=== PATIENT | female | born 1980 | race Caucasian/White ===

== ENCOUNTER 2017-05-03 11:59 | Inpatient (IN) | payer BC ==
--- NOTE | 2017-04-30 10:07 | HP ---
Admitting History and Physical - Primary Care Physician PCP: Calvin Du - Admission Chief Complaint: left breast cancer History of Present Illness: Patient is a 36 yo female noted to have a left breast mass on self exam for more than a year and a half. Patient had a mammo and US which revealed a spiculated lesion in the left UOQ and a suspicious lymph node. Patient underwent an US guided core bx on Sep 2016 which was positive for infiltrating ductal ca and DCIS ER and TX positive. Bx of the left axillary LN was negative. MRI was c/w localized dz at 2.1 cm. Ambry genetic testing was negative. Patient underwent neoadjuvant chemo and is now presenting for bilateral mastectomy with left snbx possible andx with reconstruction. History Source: Patient Limitations to Obtaining History: No Limitations - Past Medical History Gastrointestinal: Yes: Diverticulitis, Irritable Bowel Disease ...LMP: 10/25/13 - Past Surgical History Additional Past Surgical History: Right cervical LN bx as a teenager. egg harvesting - Smoking History Smoking history: Unknown if ever smoked Have you smoked in the past 12 months: Yes Aproximately how many cigarettes per day: 10 - Alcohol/Substance Use Hx Alcohol Use: Yes (WINE/RUM/VODKA) Home Medications - Allergies Allergies/Adverse Reactions: Allergies Allergy/AdvReac Type Severity Reaction Status Date / Time No Known Allergies Allergy Verified 12/19/13 14:43 - Home Medications Home Medications (free text): Seroquel Family Disease History - Family Disease History Family Disease History: CA: Mother (colon and uterine), Other: Grandparent (HTN) Other Family History: maternal GM- breast cancer. maternal GF-prostate cancer. maternal uncle-colon cancer Review of Systems - Review of Systems Constitutional: reports: No Symptoms Cardiovascular: reports: No Symptoms Respiratory: reports: No Symptoms Physical Examination Constitutional: Yes: Well Nourished Breast(s): Yes: Other (ptotic C-cup breasts without skin changes or nipple discharge. Previously palpable mass is no longer palpable. No other suspicious masses or adenopathy noted bilaterally) Problem List - Problems (1) Breast cancer, left Code(s): C50.912 - MALIGNANT NEOPLASM OF UNSPECIFIED SITE OF LEFT FEMALE BREAST Qualifiers: Breast location: upper outer quadrant of breast Patient sex: female Assessment/Plan Plan Bilateral mastectomy with left snbx, lymph possible andx and reconstruction.
[2017-05-01 13:27] VITALS: BMI 29.2
[2017-05-03] MEDS ORDERED: DEXAMETHASONE SOD PHOSPHATE/PF 10 MG/ML SDV ONE (12:07)
[2017-05-03] MEDS ORDERED: BUPIVACAINE HCL/PF 2.5 MG/ML - 30 ML VIAL IJ ONE (12:07)
[2017-05-03] MEDS ORDERED: MIDAZOLAM HCL 2 MG/2 ML SINGLE DOSE VIAL ONE (12:08)
[2017-05-03] MEDS ORDERED: PROPOFOL 20 ML ONE ×4 (13:23→15:33)
[2017-05-03] MEDS ORDERED: ROCURONIUM BROMIDE 50 MG/5 ML VIAL ONE (13:24)
[2017-05-03] MEDS ORDERED: BUPIVACAINE 0.25% /EPI 1:200,000 10 ML VIAL INF ONE (13:30)
[2017-05-03] MEDS ORDERED: ceFAZolin SODIUM 1 GM VIAL ONE ×2 (13:39→14:12)
[2017-05-03] MEDS ORDERED: DEXAMETHASONE SOD PHOSPHATE 4 MG/1 ML VIAL ONE (13:39)
[2017-05-03] MEDS ORDERED: ONDANSETRON 4 MG/2 ML VIAL ONE ×2 (13:39→17:08)
[2017-05-03] MEDS ORDERED: BUPIVACAINE HCL/EPINEPHRINE/PF 30 ML VIAL IJ ONE (13:45)
[2017-05-03] MEDS ORDERED: GENTAMICIN SO4 80 MG/2 ML VIAL ONE (14:13)
[2017-05-03] MEDS ORDERED: ONDANSETRON 4 MG/2 ML VIAL IVPUSH PRN (14:36)
[2017-05-03] MEDS ORDERED: oxyCODONE HCL 5 MG TABLET PO PRN (14:38)
[2017-05-03] MEDS ORDERED: ACETAMINOPHEN 325 MG TABLET (FP) PO PRN (15:35)
[2017-05-03] MEDS ORDERED: ONDANSETRON 4 MG/2 ML VIAL IVPB PRN (15:35)
[2017-05-03] MEDS ORDERED: QUEtiapine FUMARATE 50 MG TABLET PO PRN (15:36)
--- NOTE | 2017-05-03 16:45 | OP ---
DATE OF OPERATION: 05/03/2017 PREOPERATIVE DIAGNOSIS: Left breast cancer, upper outer quadrant. POSTOPERATIVE DIAGNOSIS: Left breast cancer, upper outer quadrant. PROCEDURE: Bilateral total nipple-sparing mastectomies from inframammary approach with left axillary sentinel lymph node biopsy and bilateral direct implant reconstruction with Alloderm. ANESTHESIA: General endotracheal anesthesia. PRIMARY SURGEON: Gaviota Lane M.D. RAND CEMENTER: Fab Quintana Primary surgeon for bilateral direct implant reconstruction with Alloderm is Ben Bray M.D., with his or assistant, Fab Jacobsen COMPLICATIONS: None. Briefly, the patient is a 36-year-old nulliparous premenopausal white female of [place] descent. She has a family history with her maternal grandmother with breast cancer at age 68, and her mother had colon and uterine cancer, with a maternal uncle who had colon cancer as well. The patient felt a mass in the upper outer aspect of the left breast at the end of 2015, and mammography showed a spiculated density in the upper outer aspect of the left breast measuring 1.9 cm under ultrasound. She underwent an ultrasound core biopsy September 2016 showing an infiltrating ductal cancer which was ER/NE positive, and HER2 positive 3+ with a Ki-67 of 21%. Patient had a questionable density in the left axilla and underwent an ultrasound core biopsy that turned out to be negative. MRI showed localized cancer. She was seen by medical oncology, and decision was made to give her neoadjuvant chemotherapy. She did have egg harvesting prior to chemotherapy for fertility preservation. The patient underwent a followup MRI after chemotherapy in March 2017 showing a much smaller mass in the left breast, upper outer quadrant. She was advised at undergoing possible wide excision but chose to have bilateral mastectomies and wanted to have nipple sparing procedures. She did undergo genetic testing which was negative for cancer panel. She was seen by plastic surgery and decided to have direct implant reconstruction. The patient was brought in for the procedure on May 03, 2017. She first underwent a lymph node scintigraphy with technetium 99 injected in the periareolar region of the left nipple areolar complex. In the holding area at [place], site verification was made and informed consent was obtained. She was marked preoperatively by the plastic surgeon and did sign consent for the nipple sparing registry. She was brought into the operating room and laid on the OR table in the supine position. Venodynes were placed on the lower extremities. She received a gram of Ancef prior to incision. Both breasts were sterilely prepped and draped in the usual fashion. She underwent general endotracheal anesthesia. The left sentinel lymph node biopsy was first performed. No blue dye was injected since we were doing nipple sparing, and we did not want to have any ischemic skin changes. After incision was made in the left axilla, dissection was undertaken and hot node was easily found in the level 1 region of axilla with a 10-second gamma count of 3670. No other blue nodes were found, and background count was 140 after removal of this node. Hemostasis was achieved, and the axillary wound was closed using interrupted 3-0 deep dermal Vicryl suture and a running 4-0 subcuticular Biosyn suture. At this point, the left nipple sparing mastectomy was performed. A 9-cm inframammary incision was marked out in the inframammary fold and incision was made. The skin edges everted and the breast was retracted inferiorly, using Eliseo clamps. The skin flap was raised, using the PEAK radiofrequency device superiorly to level of the clavicle and medially to the level of the sternum, laterally to the level of the latissimus, and inferiorly below the level of the inframammary fold. The breast was taken out along with pectoralis major muscle from inferomedial to superolateral completely removed intact. It was oriented with a long lateral, short superior suture, and weighed to allow for appropriate cosmetic result. Hemostasis was achieved, and the skin edges were trimmed for good cosmetic result. A retroareolar biopsy was taken underneath the left nipple areolar complex and for frozen section, came back negative, so the left nipple was spared. The right sentinel lymph node came back negative by frozen section, so no further nodes were removed as well. The left breast wound was then copiously irrigated with warm sterile saline and hemostasis was achieved. At this point, the right mastectomy was performed, which was a prophylactic mastectomy. Gloves and instruments were changed. Again, an inframammary incision was made on the right side about 9 cm in length. The skin edge was everted, and the breast was retracted inferiorly using Wise clamps. The skin flap was raised using the PEAK radiofrequency device superiorly to the level of the clavicle and medially to the level of the sternum, laterally to the level of the latissimus, and inferiorly below the level of the inframammary fold. The breast was taken off the pectoralis major muscle from inferomedial to superolateral and completely removed intact. It was oriented with a long lateral, short superior suture and weighed to allow for appropriate cosmetic result. At this point, skin flaps were trimmed for good cosmetic result, and hemostasis was achieved. A right retroareolar biopsy was taken for frozen section, came back negative so the right nipple was spared. At this point, the left breast was x-rayed and showed removal of the 2 clips in question. Both breasts were then placed in formalin and sent to pathology as specimens. A separate anterior margin was taken in the upper outer aspect of the left breast on the skin flap, and a suture was placed on that to leann the biopsy cavity side and then sent separately to pathology as left breast anterior margin. At this point, Dr. Bray became the primary surgeon to perform bilateral direct implant reconstructions. Alloderm will be sutured into the inferolateral aspect of both pectoralis major muscles, and implants will be placed in the subpectoral space. This will all be dictated separately by plastic surgery. Kyaw drains will be placed around each implant and brought out through separate stab incisions on the lateral skin flaps. All wounds will be closed by plastic surgery using interrupted 3-0 deep dermal PDS suture and a running 4-0 subcuticular PDS suture. The patient will be extubated and will be recovered and then admitted postoperatively for pain and wound management. She did have a prepectoral block bilaterally for postoperative pain control. All sponge, needle counts were correct at the end of bilateral mastectomies and estimated blood loss was 100 mL. She was hemodynamically stable at this point of the case. GAVIOTA LANE M.D. [id number]
[2017-05-03] MEDS ORDERED: diazePAM 2 MG TABLET ONE (17:02)
[2017-05-03] MEDS ORDERED: ACETAMINOPHEN 325 MG TABLET (FP) ONE (17:02)
[2017-05-03] MEDS ORDERED: traMADol HCL 50 MG TABLET ONE (17:02)
[2017-05-03] MEDS ORDERED: ACETAMINOPHEN 325 MG TABLET (FP) PO ONE (17:03)
[2017-05-03] MEDS ORDERED: diazePAM 2 MG TABLET PO ONE (17:03)
[2017-05-03] MEDS ORDERED: traMADol HCL 50 MG TABLET PO ONE (17:03)
[2017-05-03] MEDS ORDERED: ONDANSETRON 4 MG/2 ML VIAL IVPUSH ONE (17:05)
[2017-05-03] MEDS ORDERED: PROMETHAZINE HCL 25 MG/1 ML VIAL ONE (17:19)
[2017-05-03] MEDS: ACETAMINOPHEN 325 MG TABLET (FP) PO SCH ×2 (19:12→20:45)
[2017-05-03] MEDS: LACTATED RINGERS SOLUTION 1,000 ML IV SCH (19:12)
[2017-05-03] MEDS: DEXTROSE 5%-0.45% SALINE 1,000 ML IV SCH (19:13)
[2017-05-03] MEDS: diazePAM 2 MG TABLET PO SCH ×2 (19:13→22:00)
[2017-05-03] MEDS: traMADol HCL 50 MG TABLET PO SCH ×2 (19:13→20:45)
[2017-05-03] MEDS: CEFAZOLIN 1 GM/D5W 50 ML IVPB SCH (20:45)
[2017-05-03] MEDS: ZOLPIDEM TARTRATE 5 MG TABLET PO PRN (22:00)
[2017-05-04] MEDS: traMADol HCL 50 MG TABLET PO SCH ×4 (03:25→20:26)
[2017-05-04] MEDS: ACETAMINOPHEN 325 MG TABLET (FP) PO SCH ×4 (03:26→20:25)
[2017-05-04] MEDS: CEFAZOLIN 1 GM/D5W 50 ML IVPB SCH ×4 (03:27→20:26)
[2017-05-04] MEDS: oxyCODONE HCL 5 MG TABLET PO PRN ×3 (04:47→19:30)
[2017-05-04] MEDS: diazePAM 2 MG TABLET PO SCH ×3 (06:06→21:45)
--- NOTE | 2017-05-04 07:39 | PN ---
Progress Note, Physician Chief Complaint: S/p bilateral breast mastectomies with direct implant placement with alloderm and Left lymph node bx History of Present Illness: Pt is doing well with no complaints. Pt feels mild pressure to chest wall but no sharp pain. She denies any fever, nausea, vomiting, or difficulty breathing. - Current Medication List Current Medications: Active Medications Acetaminophen (Tylenol -) 650 mg PO Q6H MARLEN Last Admin: 05/04/17 03:26 Dose: 650 mg Diazepam (Valium -) 2 mg PO Q8H MARLEN Last Admin: 05/04/17 06:06 Dose: 2 mg Fentanyl (Sublimaze Injection -) 50 mcg IVPUSH [id number] PRN PRN Reason: PAIN Stop: 05/06/17 14:37 Heparin Sodium (Porcine) (Heparin -) 5,000 unit SQ BID MARLEN Lactated Ringer's (Lactated Ringers Solution) 1,000 mls @ 125 mls/hr IV ASDIR MARLEN Last Admin: 05/03/17 19:12 Dose: Not Given Cefazolin Sodium (Ancef 1 Gm Premixed Ivpb -) 50 mls @ 100 mls/hr IVPB Q6H-IV MARLEN Stop: 05/10/17 20:59 Last Admin: 05/04/17 03:27 Dose: 100 mls/hr Dextrose/Sodium Chloride (D5-1/2ns -) 1,000 mls @ 100 mls/hr IV ASDIR MARLEN Last Admin: 05/03/17 19:13 Dose: Not Given Ondansetron HCl (Zofran Injection) 4 mg IVPB Q6H PRN PRN Reason: NAUSEA AND/OR VOMITING Oxycodone HCl (Roxicodone -) 5 mg PO Q4H PRN PRN Reason: PAIN Last Admin: 05/03/17 19:35 Dose: 5 mg Oxycodone HCl (Roxicodone -) 10 mg PO Q4H PRN PRN Reason: PAIN Last Admin: 05/04/17 04:47 Dose: 10 mg Quetiapine Fumarate (Seroquel -) 50 mg PO HS PRN PRN Reason: ANXIETY Tramadol HCl (Ultram -) 50 mg PO Q6H MARLEN Last Admin: 05/04/17 03:25 Dose: 50 mg Zolpidem Tartrate (Ambien -) 5 mg PO HS PRN PRN Reason: Insomnia Last Admin: 05/03/17 22:00 Dose: 5 mg - Objective Vital Signs: Vital Signs Temperature 98.0 F 05/04/17 06:00 Pulse Rate 6 L 05/04/17 06:00 Respiratory Rate 20 05/04/17 06:00 Blood Pressure 107/64 05/04/17 06:00 O2 Sat by Pulse Oximetry (%) 20 L 05/04/17 06:15 Constitutional: Yes: Well Nourished Eyes: Yes: WNL HENT: Yes: WNL Neck: Yes: WNL Cardiovascular: Yes: WNL Respiratory: Yes: WNL Gastrointestinal: Yes: WNL ...Rectal Exam: Yes: Deferred Genitourinary: Yes: WNL Breast(s): Yes: Other (Bilateral breasts with appropriate swelling and ecchymosis. Soft with no fluid collections or hematoma felt. MELONIE drains holding suction. Steri strips c/d/i. No s/s of infections. Bilateral nipples viable, left more dusky in color) Edema: No Integumentary: Yes: WNL Wound/Incision: Yes: Clean/Dry, Steri Strips ...Motor Strength: WNL Psychiatric: Yes: WNL Additional Findings/Remarks: Pt is POD #1 S/p bilateral breast mastectomies with direct implant placement with alloderm and Left lymph node bx Cont with pain management cont with post op bra and MELONIE drains cont with donald hugger Possible d/c later today or tomorrow Pt will call and follow up in one week.
[2017-05-04] MEDS ORDERED: QUEtiapine FUMARATE 25 MG TABLET (FP) PO PRN ×2 (08:04→22:00)
[2017-05-04 08:29] LABS: MCH 29.7 pg (25.7-33.7); MCHC 33.4 g/dl (32.0-36.0); MEAN CELL VOLUME 88.9 fl (80-96); MEAN PLT VOLUME 9.1 fl (7.5-11.1); PLATELET COUNT 294 K/MM3 (134-434); RDW 13.1 % (11.6-15.6); WHITE BLOOD COUNT 11.1 K/mm3 (4.0-10.8)
[2017-05-04] MEDS: BACITRACIN 0.9 GM PACKET TP SCH ×2 (08:32→21:44)
--- NOTE | 2017-05-04 09:20 | PN ---
Progress Note, Physician Chief Complaint: S/P bilateral mastectomy with left snbx, bilateral implant placement POD#1 History of Present Illness: Patient reports a feeling of heaviness in the chest with minimal pain. Patient is otherwise doing well. - Current Medication List Current Medications: Active Medications Acetaminophen (Tylenol -) 650 mg PO Q6H MARLEN Last Admin: 05/04/17 08:32 Dose: 650 mg Bacitracin (Bacitracin -) 0.9 gm TP BID MARLEN Last Admin: 05/04/17 08:32 Dose: 0.9 gm Diazepam (Valium -) 2 mg PO Q8H MARLEN Last Admin: 05/04/17 06:06 Dose: 2 mg Fentanyl (Sublimaze Injection -) 50 mcg IVPUSH [id number] PRN PRN Reason: PAIN Stop: 05/06/17 14:37 Heparin Sodium (Porcine) (Heparin -) 5,000 unit SQ BID MARLEN Lactated Ringer's (Lactated Ringers Solution) 1,000 mls @ 125 mls/hr IV ASDIR MARLEN Last Admin: 05/03/17 19:12 Dose: Not Given Cefazolin Sodium (Ancef 1 Gm Premixed Ivpb -) 50 mls @ 100 mls/hr IVPB Q6H-IV MARLEN Stop: 05/10/17 20:59 Last Admin: 05/04/17 03:27 Dose: 100 mls/hr Dextrose/Sodium Chloride (D5-1/2ns -) 1,000 mls @ 100 mls/hr IV ASDIR MARLEN Last Admin: 05/03/17 19:13 Dose: Not Given Ondansetron HCl (Zofran Injection) 4 mg IVPB Q6H PRN PRN Reason: NAUSEA AND/OR VOMITING Oxycodone HCl (Roxicodone -) 5 mg PO Q4H PRN PRN Reason: PAIN Last Admin: 05/03/17 19:35 Dose: 5 mg Oxycodone HCl (Roxicodone -) 10 mg PO Q4H PRN PRN Reason: PAIN Last Admin: 05/04/17 04:47 Dose: 10 mg Quetiapine Fumarate (Seroquel -) 50 mg PO HS PRN PRN Reason: ANXIETY Tramadol HCl (Ultram -) 50 mg PO Q6H [facility] Last Admin: 05/04/17 08:32 Dose: 50 mg Zolpidem Tartrate (Ambien -) 5 mg PO HS PRN PRN Reason: Insomnia Last Admin: 05/03/17 22:00 Dose: 5 mg - Objective Vital Signs: Vital Signs Temperature 98.0 F 05/04/17 06:00 Pulse Rate 6 L 05/04/17 06:00 Respiratory Rate 20 05/04/17 06:00 Blood Pressure 107/64 05/04/17 06:00 O2 Sat by Pulse Oximetry (%) 20 L 05/04/17 06:15 Constitutional: Yes: Well Nourished, Calm Breast(s): Yes: Other (Bilateral flaps with ecchymosis. Flaps are warm, left xeroform in place. MELONIE x 4 with serosanginous discharge noted. Steristrips intact.) Labs: CBC, BMP 05/04/17 07:30 Problem List - Problems (1) Breast cancer, left Code(s): C50.912 - MALIGNANT NEOPLASM OF UNSPECIFIED SITE OF LEFT FEMALE BREAST Qualifiers: Breast location: upper outer quadrant of breast Patient sex: female Assessment/Plan Plan: OOB today with assistance. IS 10 xs/hr Continue pain meds and axbx Teach MELONIE care.
--- NOTE | 2017-05-04 09:28 | PN ---
Progress Note (short form) - Note Progress Note: ANESTHESIOLOGY POSTOP: 36 yo female POD#1 s/p bl mastectomy with reconstruction (ax node left). Patient doing well. C/o some pressure. Pain adequately controlled. NO nausea at all. Continue current care. Encourage IS and ambulation. Patient tolerating PO.
[2017-05-04] MEDS: HEPARIN NA (PORCINE) 5,000 UNITS/ML 1ML VIAL SQ SCH ×2 (09:46→21:45)
[2017-05-04] MEDS ORDERED: BACITRACIN 0.9 GM PACKET TP SCH (10:00)
[2017-05-04] MEDS: LACTATED RINGERS SOLUTION 1,000 ML IV SCH (14:47)
[2017-05-04] MEDS: DEXTROSE 5%-0.45% SALINE 1,000 ML IV SCH (16:47)
[2017-05-04 17:52] LABS: HIV 1 & 2 AB NEGATIVE; HIV 1 AGp24 NEGATIVE
[2017-05-04] MEDS: ZOLPIDEM TARTRATE 5 MG TABLET PO PRN (21:56)
[2017-05-05] MEDS: ACETAMINOPHEN 325 MG TABLET (FP) PO SCH ×2 (02:37→09:15)
[2017-05-05] MEDS: traMADol HCL 50 MG TABLET PO SCH ×2 (02:38→09:15)
[2017-05-05] MEDS: CEFAZOLIN 1 GM/D5W 50 ML IVPB SCH ×2 (02:38→09:16)
[2017-05-05] MEDS: diazePAM 2 MG TABLET PO SCH (06:07)
[2017-05-05 06:57] VITALS: BP 119/78; PULSE 63; TEMP 97.8
[2017-05-05] MEDS: BACITRACIN 0.9 GM PACKET TP SCH (09:16)
[2017-05-05] MEDS: HEPARIN NA (PORCINE) 5,000 UNITS/ML 1ML VIAL SQ SCH (09:16)
--- NOTE | 2017-05-05 10:40 | DS ---
Physical Examination Vital Signs: Vital Signs Temperature 97.8 F 05/05/17 06:00 Pulse Rate 63 05/05/17 06:00 Respiratory Rate 18 05/05/17 06:00 Blood Pressure 119/78 05/05/17 06:00 O2 Sat by Pulse Oximetry (%) 98 05/05/17 06:54 Constitutional: Yes: Well Nourished, No Distress Wound/Incision: Yes: Clean/Dry (Skin flaps and nipples viable. JPs functioning, serous effluent) Neurological: Yes: Alert, Oriented Labs: CBC, BMP 05/04/17 07:30 Discharge Summary Reason For Visit: LEFT BREAST CA Current Active Problems Breast cancer, left (Acute) Procedures: Principal: Bilateral nipple sparing mastectomies with direct implant reconstruction Hospital Course: The patient did well during her hospital course, pain well controlled Condition: Stable - Instructions Diet, Activity, Other Instructions: BREAST SURGERY INSTRUCTIONS Faiza Mitchell M.D., BERNIE Du M.D., BERNIE Jarquin M.D., FACS 1. Please call the office at to make a follow up appointment with your surgeon. This number can be also used for any urgent issues you may have. 2. Call us immediately if any of the following occur: *Bleeding from the incision or drain site (a small amount is normal) *Fever or chills *Redness and worsening tenderness around the surgical site *Drainage of pus or fluid from the incision or drain site 3. You may change the surgical dressing two (2) days after your surgery, and may shower then. If you have drains, you may shower after they have been removed, until then take a sponge bath. 4. It is normal for there to be some bruising and tenderness around the surgical site, and the breast may also be firm in this area. 5. Please wear a comfortable bra (sports or surgical bra) all day and all night until your first follow-up visit with your surgeon. 6. The pain medicine you have been prescribed may make you constipated; make sure you drink plenty of water. You may use an over the counter laxative if needed. 7. You may resume your normal diet after surgery, although you may want to avoid rich foods for the first twenty-four (24) hours after surgery. Alcoholic drinks should be avoided while taking the prescribed pain medicine. 8. You may resume normal activities as long as there is no discomfort, but do not do upper body exercises until after your follow-up appointment. Do not lift anything heavier than a large phone book. You may resume driving once you have stopped taking the prescribed pain medicine and feel comfortable doing arm movements. Disposition: HOME - Home Medications Comprehensive Discharge Medication List: Ambulatory Orders Biotin 10,000 mcg PO DAILY 05/01/17 Multivitamins [Tab-A-Vit -] 1 tab PO DAILY 05/01/17 Quetiapine Fumarate [Seroquel -] 50 mg PO HS PRN 05/03/17
--- NOTE | 2017-05-06 16:31 | OP ---
DATE OF OPERATION: 05/03/2017 PREOPERATIVE DIAGNOSES: 1. Left breast cancer. 2. Acquired absence of bilateral breasts. POSTOPERATIVE DIAGNOSES: 1. Left breast cancer. 2. Acquired absence of bilateral breasts. PROCEDURES: 1. Immediate bilateral breast [facility] [id number] 2. Insertion of acellular dermal matrix sling to bilateral breast inferior poles for soft-tissue reinforcement. 3. Intraoperative angiography of bilateral mastectomy skin flaps. 4. Processing and interpretation of bilateral intraoperative angiography images. ATTENDING SURGEON: Ben Bray MD FIELD REVIEWER: FIDELINA Lezama ANESTHESIA: General endotracheal. ESTIMATED BLOOD LOSS: 100 mL. SPECIMEN: As per Surgical Oncology. DRAINS: 1. Number 15 round Kyaw drain x2 to right breast. 2. Number 15 round Kyaw drain x2 to left breast. COMPLICATIONS: None. CONDITION: Stable to recovery room, extubated. INDICATIONS: The patient is a 36-year-old female with a diagnosis of left breast cancer, who has undergone neoadjuvant chemotherapy. She now presents for definitive surgical management of her breast cancer and has been recommended for a nipple-sparing mastectomy. In addition, the patient will undergo a right prophylactic nipple-sparing mastectomy. The patient was evaluated preoperatively for immediate reconstruction, and she is most appropriately a candidate for direct implant versus a staged implant reconstruction, depending on the overlying quality of her mastectomy skin flaps. She understands this final decision will be made intraoperatively based upon her angiography images. The risks, benefits, and alternatives of the reconstruction were discussed with the patient in detail and all questions were answered. The risks include but are not limited to bleeding, infection, pain, need for revision or further surgery, partial or complete skin flap loss, partial or complete nipple loss, damage to neighboring structures including nerves, arteries, veins, and tendons. The patient understands these risks and has elected to proceed with surgery. PROCEDURE: After proper identification and marking the patient in the preoperative holding area, the patient was transported to the operating room, placed supine on the table, and noninvasive anesthesia monitors were applied. Intravenous access was established. General anesthesia was administered, and the patient was intubated without difficulty. SCD boots were applied to bilateral lower extremities. Intravenous antibiotics were then given. The patient's bilateral breasts were then prepped and draped in the usual sterile fashion. Dr. Du from surgical oncology then proceeded to perform bilateral nipple-sparing mastectomies through an inframammary fold approach, as well as the left sentinel lymph node biopsy. These procedures will be dictated separately. Upon completion of the mastectomies, I entered the operating room and began the reconstruction on the right side. The right breast pocket was copiously irrigated with normal saline solution, and hemostasis was ensured. All loose fat debris was removed. The pectoralis major muscle was then identified. Electrocautery was used to develop a subpectoral plane, and this was continued up to the 2nd rib superiorly, up to the sternal fibers medially, and out to the anterior axillary line laterally. At this point, the origin of the pectoralis major muscle was released off of the ribs up to the 4 o'clock position on the patient's right side. Once this was completed, a piece of AlloDerm Select perforated contour medium was opened. It was bathed in 2 saline baths, followed by triple-antibiotic solution. It was then brought up to the patient's right breast, where it was sutured in place. A 2-0 Vicryl suture was used to secure the superomedial edge of the AlloDerm to the released inferomedial edge of the pectoralis major muscle. This was then continued from a medial to lateral direction in simple running fashion in order to secure the superior edge of the AlloDerm to the released inferior edge of the pectoralis major muscle at the level of the anterior axillary line. The 2-0 Vicryl suture was continued along the chest wall in order to recreate the lateral breast border at the level of the inframammary fold. This 2-0 Vicryl suture was temporarily stopped. A 2nd 2-0 Vicryl suture was then started, again at the superomedial edge of the AlloDerm, and then was continued in a simple running fashion from a superior to inferior direction in order to secure the AlloDerm down to the chest wall and recreate the medial breast border at the level of the inframammary fold, this was temporarily stopped. At this point, the pectoralis/AlloDerm pocket was copiously irrigated with triple-antibiotic solution. At this point, a saline sizer was placed underneath the pectoralis/AlloDerm pocket and was inflated to 625 mL. There was noted to be excessive tension on the skin as well as excessive volume superiorly, and therefore, this was deflated down to 575 mL and there was noted to be a significant improvement in the breast shape as well as the tension on the skin. Therefore the sizer was removed, and at this point bilateral mastectomies had been completed and therefore the indocyanine green angiography system was brought into the field. A 4 mL intravenous injection of indocyanine green was given, and bilateral mastectomy flap angiography was performed. Processing and interpretation of these images revealed good perfusion to the mastectomy skin flaps. The left nipple showed slightly delayed perfusion. Once the angiography images were completed, the decision was made to proceed with direct implant reconstruction. Therefore, right breast pocket was irrigated again with triple-antibiotic solution. At this point gloves were changed, and a Sientra 575 mL moderate profile smooth round silicone implant was opened. It was bathed in the triple-antibiotic solution and then was placed into the right breast pocket underneath the pectoralis/AlloDerm. Once proper orientation of the implant was confirmed, the AlloDerm was draped of the inferior edge of the implant and the previous 2-0 Vicryl sutures were then continued from both medial and lateral directions in order to secure the inferior edge of the AlloDerm down through the inframammary fold. At the breast meridian, the 2-0 Vicryl sutures were tied to each other. Once this was completed, the mastectomy skin flap was redraped and there was noted to be an excellent shape and therefore 2 number 15 round Kyaw drains were placed in the right breast pocket and brought out through separate stab incisions laterally and secured to the skin with 3-0 nylon sutures. The inframammary fold incision was then closed in layers using a 3-0 PDS in a buried deep dermal fashion, followed by 3-0 Monocryl in a running subcuticular fashion. Mastisol and Steri-Strips were applied to this closure line. At this point, attention was turned towards the left breast, where the exact same procedure was performed, and therefore only 1 side will be dictated. Once bilateral breast dressings were in place, the patient was placed into a soft surgical bra, with care taken to ensure adequate padding with fluffs and ABD pads. The drain exit sites had been dressed with BioPatches and Tegaderms, and the patient at this point was slowly awakened and was extubated without incident and was transported to recovery room in stable condition. BEN BRAY M.D. MARYAM/[id number]
--- NOTE | 2017-05-08 15:24 | PATH ---
Surgical Pathology Report Patient Name: NAMRATA ROMO Med. Rec. #: [id number] /Age/Gender: 1980 (Age: 36) / F Account: [id number] Location: [facility] MED-SURG Taken: 05/03/2017 Received: 05/03/2017 Reported: 05/08/2017 Physicians: Calvin Du M.D. Specimen(s) Received A: LEFT AXILLARY SENTINEL NODE B: RIGHT RETROAREOLAR BIOPSY C: LEFT RETROAREOLAR BIOPSY D: RIGHT TRUNK LESION E: LEFT BREAST SKIN LESION F: RIGHT BREAST MASTECTOMY G: LEFT BREAST, MASTECTOMY H: LEFT BREAST ANTERIOR MARGIN Clinical History Right prophylactic mastectomy, left nipple sparing mastectomy, status post neoadjuvant therapy Intraoperative Consult Diagnosis A. Left axillary sentinel lymph node #1, frozen section: One lymph node, negative for metastatic carcinoma. B. Right retroareolar biopsy, frozen section: Negative for malignancy. C. Left inferior biopsy, frozen section: Negative for malignancy. Augustine Babcock M.D. 05/03/17 Final Diagnosis A. SENTINEL NODE #1, LEFT AXILLARY, BIOPSY: ONE LYMPH NODE, NEGATIVE FOR METASTATIC CARCINOMA BY H&E AND AE1/AE3 KERATIN IMMUNOSTAIN (0/1). Comment: Immunohistochemical stain for Ae/Ae3 keratin performed and interpreted [facility] on block A1 is negative supporting the interpretation above. B. BREAST, RIGHT, RETROAREOLAR BIOPSY: BENIGN BREAST TISSUE. C. BREAST, LEFT, RETROAREOLAR BIOPSY: BENIGN BREAST TISSUE. D. 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 E. SKIN, LEFT BREAST, LESION, EXCISION: CONSISTENT WITH ACCESSORY (SUPERNUMERARY) NIPPLE. F. BREAST, RIGHT, PROPHYLACTIC NIPPLE SPARING MASTECTOMY: BENIGN BREAST TISSUE WITH FOCAL CYSTIC-APOCRINE METAPLASIA, FOCAL DUCT DILATATION, FOCAL FIBROADENOMATOID CHANGE AND STROMAL FIBROSIS. G. BREAST, LEFT, NIPPLE SPARING MASTECTOMY: DUCTAL CARCINOMA IN SITU (DCIS), INTERMEDIATE NUCLEAR GRADE, WITH CENTRAL COMEDO-TYPE NECROSIS AND CALCIFICATIONS. DCIS EXTENT: DCIS IS PRESENT ON 1 SLIDE WITH THE GREATEST EXTENT ON ONE SLIDE OF 1.3 CM. NO RESIDUAL INVASIVE CARCINOMA IDENTIFIED; POST-THERAPEUTIC FIBROSIS PRESENT, CONSISTENT WITH COMPLETE PATHOLOGIC RESPONSE. SURGICAL RESECTION MARGINS: FINAL SURGICAL RESECTION MARGINS ARE NEGATIVE FOR DCIS; DCIS IS FOCALLY WITHIN 1 MM FROM THE ANTERIOR ASPECT OF THIS SPECIMEN (REFER TO PART H FOR THE FINAL ANTERIOR MARGIN). NO LYMPHOVASCULAR OR PERINEURAL INVASION IDENTIFIED. SURROUNDING BREAST TISSUE: FOCAL DUCT DILATATION AND STROMAL FIBROSIS ONE AXILLARY TAIL LYMPH NODE WITH PRIOR BIOPSY SITE CHANGES, NEGATIVE FOR CARCINOMA (0/1). PATHOLOGIC STAGING: ypTis(DCIS) ypN0 (ALSO REFER TO CHECKLIST BELOW). RECEPTOR STATUS: REFER TO CHECKLIST BELOW. Comment: Immunohistochemical stains for p63 and SMM-HC performed and interpreted at [facility] on block G3 highlight preserved myoepithelial cells supporting DCIS. H. BREAST, LEFT, ANTERIOR MARGIN, EXCISION: BENIGN BREAST TISSUE. NEGATIVE FOR INVASIVE CARCINOMA OR DCIS. Comments Breast Invasive Carcinoma: Surgical Pathology Cancer Case Summary Based on AJCC/UICC TNM, 7th edition Procedure _x_ Nipple sparing mastectomy Lymph Node Sampling _x_ Mckean lymph node _x_ Lymph nodes present within the breast specimen Specimen Laterality _x_ Left (right -prophylactic) Tumor Size: (Size of Largest Invasive Carcinoma) _x_ No residual invasive carcinoma Tumor Focality _x_ No residual invasive carcinoma Macroscopic and Microscopic Extent of Tumor _x_ No residual invasive carcinoma Ductal Carcinoma In Situ (DCIS) _x_ DCIS is present _x_ Only DCIS is present after presurgical (neoadjuvant) therapy Histologic Type of Invasive Carcinoma: _x_ No residual invasive carcinoma Histologic Grade: (Scar Histologic Score) Tubular Differentiation _x_ No residual invasive carcinoma Nuclear Pleomorphism _x_ No residual invasive carcinoma Mitotic Rate _x_ No residual invasive carcinoma Overall Grade _x_ No residual invasive carcinoma after presurgical (neoadjuvant) therapy Margins _x_ Final margins uninvolved by DCIS Distance from the final closest margin (anterior soft tissue margin): >2 mm Lymph-Vascular Invasion _x_ Not identified Lymph Nodes Total number of lymph nodes examined (sentinel and nonsentinel): 2 Number of sentinel lymph nodes examined: 1 Number of lymph nodes with macrometastases (> 2 mm): 0 Number of lymph nodes with micrometastases (>0.2 mm to 2 mm and/or >200cells):0 Number of lymph nodes with isolated tumor cells (=0.2 mm and =200 cells): 0 Size of largest metastatic deposit (if present): n/a Extranodal Extension _x_ Not applicable Pathologic Staging (pTNM) Primary Tumor (Invasive Carcinoma): ypTis(DCIS) Regional Lymph Nodes (pN): ypN0 Distant Metastasis (pM): not applicable Biomarker Studies Results of ER and CT studies performed for invasive carcinoma on prior biopsy ([id number]: outside case review from [facility], [place], [place], [id number], 09/12/16): ER: >90% nuclear staining with strong intensity (POSITIVE). CT: >90% nuclear staining with strong intensity (POSITIVE). Her2 IHC: 3+ (POSITIVE) Ki67: 25-30% (INTERMEDIATE) Electronically Signed Alfred Marquez M.D. Gross Description A. Received fresh for frozen section evaluation, labeled "left axillary sentinel lymph node #1" is a 1.3 x 1 x 0.4 cm lymph node with scant attached fatty tissue. The lymph node is bisected and frozen section is performed on the lymph node. The frozen section residue is entirely submitted in one cassette. B. Received fresh for frozen section evaluation, labeled "right retroareolar biopsy" is a 0.3 x 0.3 x 0.2 cm portion of pink and yellow soft tissue. Frozen section is performed on the specimen. The frozen section residue is entirely submitted in one cassette. C. Received fresh for frozen section evaluation, labeled "left retroareolar biopsy" is a 1.5 x 1.2 x 0.2 cm portion of pink and yellow soft tissue. Frozen section is performed on the specimen. The frozen section residue is entirely submitted in one cassette. D. Received in formalin, labeled "right trunk lesion" is a 0.8 x 0.5 cm fragment of perez skin with a 0.4 x 0.6 cm polypoid lesion. The base is inked black, the specimen is bisected and submitted entirely in one cassette. E. Received in formalin, labeled "left breast skin lesion r/o extramammary nipple)" is a 1.0 x 0 point centimeter fragments of skin excised to a depth of 1 cm. The epidermis shows firm papule-like lesion. The base of the specimen is inked black, the specimen is bisected and submitted entirely in one cassette. F. Received in formalin, labeled "right breast mastectomy" is a 275 gram, 14.0 x 12.0 x 3.7 cm. right mastectomy specimen with a short suture marking the superior aspect and a long suture marking the lateral aspect of the specimen, per the surgeon. There is no skin or nipple present. The deep margin is inked black and the anterior soft tissue margin is inked blue. The specimen is serially sectioned from lateral to medial. Sectioning reveals multiple foci of perez-white fibrous tissue. [place]angers[place] sections are submitted in 10 cassettes as follows: Cassettes 1 and 2-brewery representative upper outer quadrant, 3-4 -brewery representative lower outer quadrant, 5-6 -brewery representative upper inner quadrant, 7-8 -brewery representative lower inner quadrant; 9-brewery representative retroareolar tissue, 10-brewery representative deep margin. Time to formalin fixation: 69 min Total formalin fixation time: ~29 hours. G. Received in formalin, labeled "left breast mastectomy" is a 319 gram, 14.5 x 12.3 x 4.0 cm. left mastectomy specimen with a short suture marking the superior aspect and a long suture marking the lateral aspect of the specimen, per the surgeon. There is no skin or nipple present. The deep margin is inked black and the anterior soft tissue margin is inked blue. The specimen is serially sectioned from medial to lateral. Sectioning reveals an ill-defined perez-white fibrous area within the upper outer quadrant with a small focus of hemorrhage measuring approximately 2.5 x 2.3 x 1.5 cm. There is also a 1.1 cm in firm perez focally hemorrhagic fibrous nodule with a biopsy clip in the extreme lateral aspect of upper outer quadrant (axillary tail) adjacent to the anterior soft tissue margin and approximately 0.3 cm from the deep margin. The remaining of the specimen reveals small foci of perez-white fibrous tissue. [place]mith sections are submitted in 14 cassettes as follows: 1-2 -two sections of the axillary tail nodule with the biopsy clip in the anterior soft tissue margin, 3-7 -sections of the ill-defined upper outer quadrant fibrous area, 8-9 -additional brewery representative sections of the upper outer quadrant, 10 -brewery representative lower outer quadrant, 11 -brewery representative upper inner quadrant, 12 -brewery representative lower inner quadrant, 14-brewery representative retroareolar area, 15 -brewery representative deep margin. Time to formalin fixation: 75 min Total formalin fixation time: ~29h H. Received in formalin, labeled "left breast anterior margin" is a 0.5 x 2 x 0.7 cm fragment of perez-yellow fibrofatty tissue the stitch marking biopsy cavity site per surgeon. The aspect opposite of the stitch is inked blue. The specimen is serially sectioned and submitted entirely in three cassettes. AE/05/03/2017 ebram/05/03/2017
== END 2017-05-05 13:30 | disposition home or self-care (01) | DRG 581 ==
LOC: FM/S 11:59
PROVIDERS: ADMIT Surgery Surgical Oncology; ATTEND Surgery Surgical Oncology
PROC: 4A1GXSH Monitoring of Skin and Breast Vascular Perfusion using Indocyanine Green Dye, External Approach (ICD-10-PCS; 2017-05-03)
PROC: 0HTV0ZZ Resection of Bilateral Breast, Open Approach (ICD-10-PCS; principal; 2017-05-03 13:22)
PROC: 07B60ZX Excision of Left Axillary Lymphatic, Open Approach, Diagnostic (ICD-10-PCS; 2017-05-03 13:22)
PROC: 0HRV0JZ Replacement of Bilateral Breast with Synthetic Substitute, Open Approach (ICD-10-PCS; 2017-05-03 13:22)
DX: C50.412 Malignant neoplasm of upper-outer quadrant of left female breast (principal); K58.8 Other irritable bowel syndrome; Z40.01 Encounter for prophylactic removal of breast; Z17.0 Estrogen receptor positive status [ER+]; Z87.891 Personal history of nicotine dependence; Z90.13 Acquired absence of bilateral breasts and nipples
CPT/HCPCS: 36415; 78195-TC; 84703; 85027; 87389; 88305-TC; 88307-TC; 88331-TC; 88341-TC; 94010; 94760; A9541; J1644